=== PATIENT | female | born 1975 | race Caucasian/White ===

== ENCOUNTER 2017-11-07 15:26 | Emergency (ER) | payer OTHER ==
--- NOTE | 2017-11-07 16:43 | RAD REPORT ---
EXAM DESCRIPTION: RAD - Chest Single View - 11/07/2017 4:30 pm CLINICAL HISTORY: Chest pain COMPARISON: None. TECHNIQUE: AP portable chest image was obtained 1625 hours . FINDINGS: Lungs are clear. Heart and vasculature are normal. No measurable pleural effusion and no p neumothorax. No gross bony abnormality seen. No acute aortic findings suspected. IMPRESSION: No acute cardiopulmonary process.
[2017-11-07 16:48] LABS: Absolute Lymphocytes (CBC) 1.9 K/uL (0.7-4.9); Absolute Monocytes 0.7 K/uL (0.1-1.3); Absolute Neutrophil 5.3 K/uL (1.8-8.0); Basophils % 0.3 % (0-1.3); Eosinophils % 2.2 % (0-4.4); Hematocrit 39.8 % (36.0-45.0); Lymphocytes % 23.6 % (15.3-44.8); MCH 27.2 pg (27.0-35.0); MCV 81.5 fL (80-100); MPV 8.6 fL (7.6-11.3); RBC Red Blood Cell Count 4.89 M/uL (3.86-4.86)
[2017-11-07 16:58] LABS: Bicarbonate 27 mEq/L (21-31); Glucose Level 114 mg/dL (65-120); Potassium 4.1 mEq/L (3.6-5.0); Sodium Level 134 mEq/L (135-145)
[2017-11-07 17:04] LABS: ALT/SGPT 15 IU/L (10-60); AST/SGOT 17 IU/L (10-42); Albumin 3.8 g/dL (3.2-5.5); Alkaline Phosphatase 73 IU/L (42-121); BUN Blood Urea Nitrogen 12 mg/dL (6-20); Bilirubin Direct 0.1 mg/dL (0-0.2); Bilirubin Total < 0.2 mg/dL (0.3-1.2); Glomerular Filtration Rate 83 mL/min (=/>90); Magnesium 1.9 mg/dL (1.8-2.5)
[2017-11-07 17:08] LABS: Protime INR 0.88
--- NOTE | 2017-11-07 17:54 | RAD REPORT ---
EXAM DESCRIPTION: CT - Chest For Pe Angio - 11/07/2017 5:45 pm CLINICAL HISTORY: Chest pain. COMPARISON: None. TECHNIQUE: CT angiogram of the pulmonary arteries was performed with MIP. All CT scans are performed using dose optimization technique as appropriate and may include automated exposure control or mA/KV adjustment according to patient size. FINDINGS: No evidence of pulmonary thromboembolism. No acute aortic finding demonstrated. The lungs are clear. No significant pericardial or pleural fluid. No concerning bony finding. Postsurgical changes are seen about the stomach. IMPRESSION: No evidence of pulmonary thromboembolism. No acute lung findings.
[2017-11-07 18:13] LABS: Urine Blood NEGATIVE (NEG); Urine Glucose NEGATIVE (NEG); Urine Protein NEGATIVE (NEG); Urine Specific Gravity 1.025 (1.005-1.030); Urine pH 5.5 (5.0-7.0)
--- NOTE | 2017-11-07 19:29 | ER ---
Nurse's Notes [facility] Name: Bianka Granado Age: 41 yrs Sex: Female : 1975 Arrival Date: 11/07/2017 Time: 15:31 Bed 25 Private MD: Diagnosis: Chest pain, unspecified Presentation: 11/07 15:33 Presenting complaint: Patient states: I have been having chest pain on and off for the la1 last couple months that I attributed to anxiety but I had a couple EKGs done and they were abnormal. Transition of care: patient was not received from another setting of care. Onset of symptoms was November 07, 2017. Care prior to arrival: None. 15:33 Method Of Arrival: Ambulatory la1 15:33 Acuity: CANDI 3 la1 Historical: - Allergies: 15:34 Cipro; la1 - PMHx: 15:34 None; la1 - Immunization history:: Adult Immunizations up to date. - Social history:: Smoking status: Patient uses tobacco products, smokes one-half pack cigarettes per day. Screenin:05 Abuse screen: Denies threats or abuse. Denies injuries from another. Nutritional aj screening: No deficits noted. Tuberculosis screening: No symptoms or risk factors identified. Fall Risk None identified. Assessment: 16:05 Reassessment: Patient is sitting up in bed with at bedside. Patient is eating aj goldfish crackers, in NAD. General: Appears in no apparent distress. comfortable, Behavior is calm, cooperative, appropriate for age. Pain: Denies pain. Neuro: Level of Consciousness is awake, alert, obeys commands, Oriented to person, place, time, situation, Appropriate for age. Cardiovascular: Reports chest pain, since that occurred last night and has since subsided. Respiratory: Airway is patent Respiratory effort is even, unlabored, Respiratory pattern is regular, symmetrical. GI: No signs and/or symptoms were reported involving the gastrointestinal system. Abdomen is non-distended, obese. Derm: Skin is intact, is healthy with good turgor, Skin is pink, warm \T\ dry. normal. Vital Signs: 15:34 BP 138 / 88; Pulse 83; Resp 16; Temp 98.4(TE); Pulse Ox 100% on R/A; Weight 109.77 kg; la1 Height 5 ft. 6 in. (167.64 cm); 17:16 BP 130 / 77; Pulse 68; Resp 16; Pulse Ox 98% on R/A; aj 17:56 BP 127 / 78; Pulse 78; Resp 16; Pulse Ox 99% on R/A; aj 19:08 BP 111 / 76; Pulse 69; Resp 19; Pulse Ox 99% on R/A; aj 15:34 Body Mass Index 39.06 (109.77 kg, 167.64 cm) la1 ED Course: 15:31 Patient arrived in ED. mr 15:34 Triage completed. la1 15:35 Arm band placed on left wrist. la1 15:38 Tj Berman PA is PHCP. jr8 15:38 Ry Ruiz MD is Attending Physician. jr8 15:40 Mckenna Stock RN is Primary Nurse. aj 16:05 Patient has correct armband on for positive identification. Bed in low position. Warm aj blanket given. 16:28 X-ray completed. Portable x-ray completed in exam room. Patient tolerated procedure kc2 well. 16:29 XRAY Chest (1 view) In Process Unspecified. EDMS 16:30 Inserted saline lock: 20 gauge in left antecubital area, using aseptic technique. Blood aj collected. 17:00 EKG done, by ED staff, reviewed by Tj VYAS. 3 17:16 satellite project site monitor on. Pulse ox on. NIBP on. aj 17:[address] 17:[address] CT Chest For PE Angio In Process Unspecified. EDMS 19:42 No provider procedures requiring assistance completed. Patient did not have IV access aj during this emergency room visit. Administered Medications: No medications were administered Outcome: 19:29 Discharge ordered by . ziyad 19:42 Discharged to home ambulatory, with family. aj 19:42 Condition: good 19:42 Discharge instructions given to patient, Instructed on discharge instructions, follow up and referral plans. Demonstrated understanding of 19:43 Patient left the ED. aj Signatures: Dispatcher [employer] EDMS Mckenna Stock, RN Peri Cordoba mr Tj Berman PA PA jr8 Mckenna nelson, weed burner EKG Tat1 Greg Caba RN RN la1 Stacie Miranda Kelsie 2 Jennifer Matthews 3 Corrections: (The following items were deleted from the chart) 19:11 17:00 EKG done, by technology architect. reviewed by Tj VYAS at1 dh3
--- NOTE | 2017-11-07 19:30 | EDPHYS ---
Physician Documentation [facility] Name: Bianka Granado Age: 41 yrs Sex: Female : 1975 Arrival Date: 11/07/2017 Time: 15:31 Bed 25 Private MD: ED Physician Ry Ruiz HPI: 11/07 16:25 This 41 yrs old Female presents to ER via Ambulatory with complaints of chest jr8 pain . 16:25 The patient or guardian reports chest pain that is located primarily in the anterior jr8 chest wall, left. Onset: suddenly. The pain does not radiate. Associated signs and symptoms: Pertinent positives: diaphoresis. The chest pain is described as a heaviness, a pressure, squeezing. Duration: The patient or guardian reports multiple episodes, the episodes last approximately 10 minute(s). Modifying factors: The symptoms are alleviated by nothing. the symptoms are aggravated by nothing. Severity of pain: At its worst the pain was moderate in the emergency department the pain is unchanged. The patient has not experienced similar symptoms in the past. The patient has been recently seen by a physician:. Patient stated that for the past three months has had episodes of squeezing chest pressure that can last up to 10 min. Had sudden sharp pain while at rest last night. Went to PCP and had ekg done that showed abnormal appearance and was sent to ED. Currently being worked up for possible breast cancer as well . Historical: - Allergies: 15:34 Cipro; la1 - PMHx: 15:34 None; la1 - Immunization history:: Adult Immunizations up to date. - Social history:: Smoking status: Patient uses tobacco products, smokes one-half pack cigarettes per day. ROS: 16:25 Eyes: Negative for injury, pain, redness, and discharge, ENT: Negative for injury, jr8 pain, and discharge, Neck: Negative for injury, pain, and swelling, Respiratory: Negative for shortness of breath, cough, wheezing, and pleuritic chest pain, Abdomen/GI: Negative for abdominal pain, nausea, vomiting, diarrhea, and constipation, Back: Negative for injury and pain, MS/Extremity: Negative for injury and deformity, Skin: Negative for injury, rash, and discoloration, Neuro: Negative for headache, weakness, numbness, tingling, and seizure. 16:25 Cardiovascular: Positive for chest pain, Negative for edema, orthopnea, palpitations, paroxysmal nocturnal dyspnea. Exam: 16:25 Eyes: Pupils equal round and reactive to light, extra-ocular motions intact. Lids and jr8 lashes normal. Conjunctiva and sclera are non-icteric and not injected. Cornea within normal limits. Periorbital areas with no swelling, redness, or edema. ENT: Nares patent. No nasal discharge, no septal abnormalities noted. Tympanic membranes are normal and external auditory canals are clear. Oropharynx with no redness, swelling, or masses, exudates, or evidence of obstruction, uvula midline. Mucous membranes moist. Neck: Trachea midline, no thyromegaly or masses palpated, and no cervical lymphadenopathy. Supple, full range of motion without nuchal rigidity, or vertebral point tenderness. No Meningismus. Cardiovascular: Regular rate and rhythm with a normal S1 and S2. No gallops, murmurs, or rubs. Normal PMI, no JVD. No pulse deficits. Respiratory: Lungs have equal breath sounds bilaterally, clear to auscultation and percussion. No rales, rhonchi or wheezes noted. No increased work of breathing, no retractions or nasal flaring. Abdomen/GI: Soft, non-tender, with normal bowel sounds. No distension or tympany. No guarding or rebound. No evidence of tenderness throughout. Back: No spinal tenderness. No costovertebral tenderness. Full range of motion. Skin: Warm, dry with normal turgor. Normal color with no rashes, no lesions, and no evidence of cellulitis. MS/ Extremity: Pulses equal, no cyanosis. Neurovascular intact. Full, normal range of motion. Neuro: Awake and alert, GCS 15, oriented to person, place, time, and situation. Cranial nerves II-XII grossly intact. Motor strength 5/5 in all extremities. Sensory grossly intact. Cerebellar exam normal. Normal gait. Vital Signs: 15:34 BP 138 / 88; Pulse 83; Resp 16; Temp 98.4(TE); Pulse Ox 100% on R/A; Weight 109.77 kg; la1 Height 5 ft. 6 in. (167.64 cm); 17:16 BP 130 / 77; Pulse 68; Resp 16; Pulse Ox 98% on R/A; aj 17:56 BP 127 / 78; Pulse 78; Resp 16; Pulse Ox 99% on R/A; aj 19:08 BP 111 / 76; Pulse 69; Resp 19; Pulse Ox 99% on R/A; aj 15:34 Body Mass Index 39.06 (109.77 kg, 167.64 cm) la1 MDM: 15:38 Patient medically screened. jr8 19:28 The patient was given aspirin in the Emergency Department. Data reviewed: vital signs, [facility] nurses notes, lab test result(s), EKG, radiologic studies, CT scan, plain films, and as a result, I will discharge patient. Data interpreted: Pulse oximetry: on room air is 99 %. Interpretation: normal. Counseling: I had a detailed discussion with the patient and/or guardian regarding: the historical points, exam findings, and any diagnostic results supporting the discharge/admit diagnosis, lab results, radiology results, the need for outpatient follow up, a family practitioner, to return to the emergency department if symptoms worsen or persist or if there are any questions or concerns that arise at home. 11/07 16:21 Order name: Basic Metabolic Panel; Complete Time: 17:08 11/07 16:21 Order name: BNP; Complete Time: 17:08 11/07 16:21 Order name: CBC with Diff; Complete Time: 17:02 11/07 16:21 Order name: LFT's; Complete Time: 17:08 11/07 16:21 Order name: Magnesium; Complete Time: 17:08 11/07 16:21 Order name: PT-INR; Complete Time: 17:29 11/07 16:21 Order name: Ptt, Activated; Complete Time: 17:29 11/07 16:21 Order name: Troponin (emerg Dept Use Only); Complete Time: 17:08 11/07 16:21 Order name: XRAY Chest (1 view); Complete Time: 16:51 11/07 16:21 Order name: DD; Complete Time: 17:29 11/07 17:30 Order name: CT Chest For PE Angio; Complete Time: 17:57 11/07 17:36 Order name: Urine Dipstick--Ancillary (enter results); Complete Time: 18:19 mw2 11/07 17:36 Order name: Urine --Ancillary (enter results); Complete Time: 18:19 2 11/07 18:20 Order name: Troponin (emerg Dept Use Only); Complete Time: 19:28 8 11/07 16:21 Order name: EKG; Complete Time: 16:21 8 11/07 16:21 Order name: Cardiac monitoring; Complete Time: 17:19 8 11/07 16:21 Order name: EKG - Nurse/Tech; Complete Time: 17:19 8 11/07 16:21 Order name: IV Saline Lock; Complete Time: 17:19 11/07 16:21 Order name: Labs collected and sent; Complete Time: 17:19 11/07 16:21 Order name: O2 Per Protocol; Complete Time: 17:19 11/07 16:21 Order name: O2 Sat Monitoring; Complete Time: 17:19 11/07 16:21 Order name: Urine Dipstick-Ancillary (obtain specimen); Complete Time: 17:19 8 11/07 18:20 Order name: EKG - Nurse/Tech; Complete Time: 19:07 [facility] 11/07 18:20 Order name: EKG; Complete Time: 18:20 Administered Medications: No medications were administered Disposition: 11/07/17 19:29 Discharged to Home. Impression: Chest pain, unspecified. - Condition is Stable. - Discharge Instructions: Nonspecific Chest Pain, Aspirin and Your Heart. - Medication Reconciliation Form, Thank You Letter, Antibiotic Education, Prescription Opioid Use form. - Follow up: Private Physician; When: 2 - 3 days; Reason: Recheck today's complaints, Continuance of care, Re-evaluation by your physician. - Problem is new. - Symptoms have improved. Addendum: 11/10/2017 07:51 Co-signature as Attending Physician, Ry Ruiz MD I agree with the assessment and w a plan of care. Signatures: Dispatcher [employer] Mckenna Dior, RN Tj Soto PA PA jr8 Greg Caba RN RN la1 Ry Ruiz MD MD ne
--- NOTE | 2017-11-09 22:39 | EKG ---
Test Date: 2017-11-07 Test Time: 19:02:50 Radio Interference Investigator: KAYLENE MEASUREMENT RESULTS: Intervals: Rate: 67 MD: 162 QRSD: 78 QT: 390 QTc: 412 [place]: P: 67 MD: 162 QRS: 53 T: 22 INTERPRETIVE STATEMENTS: Normal sinus rhythm Normal ECG Compared to ECG 11/07/2017 15:41:35 No significant changes Electronically Signed On 11-09-17 22:39:24 CDT by Nathen Eagle
--- NOTE | 2017-11-09 22:42 | EKG ---
Test Date: 2017-11-07 Test Time: 15:41:35 Wind Turbine Design Engineer: AMANDA MEASUREMENT RESULTS: Intervals: Rate: 72 CT: 142 QRSD: 78 QT: 380 QTc: 416 [place]: P: 53 CT: 142 QRS: 43 T: 1 INTERPRETIVE STATEMENTS: Normal sinus rhythm Normal ECG No previous ECG available for comparison Electronically Signed On 11-09-17 22:42:12 CDT by Nathen Eagle
== END 2017-11-07 19:43 | disposition home or self-care (01) ==
LOC: ER 15:26
DX: R07.9 Chest pain, unspecified (principal); F17.210 Nicotine dependence, cigarettes, uncomplicated; Z88.1 Allergy status to other antibiotic agents
CPT/HCPCS: 36415; 71045; 71275; 80048; 80076; 81003; 81025; 83735; 83880; 84484; 85025; 85379; 85610; 85730; 93005; 99285; Q9967

== ENCOUNTER 2017-12-26 00:07 | Observation (INO) | payer OTHER ==
[2017-12-26 01:13] LABS: Absolute Lymphocytes (CBC) 2.3 K/uL (0.7-4.9); Absolute Monocytes 0.7 K/uL (0.1-1.3); Absolute Neutrophil 4.2 K/uL (1.8-8.0); Basophils % 0.4 % (0-1.3); Eosinophils % 2.1 % (0-4.4); Hematocrit 39.8 % (36.0-45.0); Lymphocytes % 31.6 % (15.3-44.8); MCH 26.5 pg (27.0-35.0); MCV 79.7 fL (80-100); MPV 8.6 fL (7.6-11.3); Monocytes % 9.6 % (3.3-12.3); RBC Red Blood Cell Count 4.99 M/uL (3.86-4.86)
[2017-12-26 01:17] LABS: Protime INR 0.9
[2017-12-26] MEDS ORDERED: ASPIRIN 81 MG CHEWABLE TABLET ONE (01:20)
[2017-12-26] MEDS ORDERED: NITROGLYCERIN 0.4 MG/TAB SL ONE (01:25)
[2017-12-26 01:44] LABS: Bicarbonate 24 mEq/L (21-31); Glucose Level 104 mg/dL (65-120); Potassium 3.8 mEq/L (3.6-5.0); Sodium Level 137 mEq/L (135-145)
[2017-12-26 01:50] LABS: ALT/SGPT 16 IU/L (10-60); AST/SGOT 18 IU/L (10-42); Albumin 3.8 g/dL (3.2-5.5); Alkaline Phosphatase 72 IU/L (42-121); BUN Blood Urea Nitrogen 15 mg/dL (6-20); Bilirubin Direct < 0.1 mg/dL (0-0.2); Bilirubin Total 0.6 mg/dL (0.3-1.2); Creatine Phosphokinase 178 IU/L (22-269); Protein, Total 6.2 g/dL (6.0-8.3)
[2017-12-26 01:50] LABS: Urine Blood NEGATIVE (NEG); Urine Glucose NEGATIVE (NEG); Urine Protein NEGATIVE (NEG); Urine Specific Gravity 1.015 (1.005-1.030); Urine pH 6.5 (5.0-7.0)
[2017-12-26 01:51] LABS: CKMB Creatine Kinase MB 1.1 ng/ml (0.3-4.0)
[2017-12-26] MEDS ORDERED: ONDANSETRON 4 MG/2 ML VIAL ONE (03:05)
--- NOTE | 2017-12-26 03:13 | ER ---
Nurse's Notes [facility] Name: Bianka Granado Age: 42 yrs Sex: Female : 1975 Arrival Date: 12/26/2017 Time: 00:08 Bed 15 Private MD: Diagnosis: Angina pectoris Presentation: 12/26 00:06 Presenting complaint: EMS states: Reports pt had a sudden onset of palpitations. and ea chest pain in the center of her chest that does not radiate, pt reported she was just sitting down watching television when this started. Transition of care: patient was not received from another setting of care. Onset of symptoms was December 26, 2017. Risk Assessment: Do you want to hurt yourself or someone else? Patient reports no desire to harm self or others. Initial Sepsis Screen: Does the patient meet any 2 criteria? No. Patient's initial sepsis screen is negative. Does the patient have a suspected source of infection? No. Patient's initial sepsis screen is negative. Care prior to arrival: EMS reported EKG Normal sinus rhythm. 00:06 Method Of Arrival: EMS: [facility] ea 00:06 Acuity: CANDI 3 ea Triage Assessment: 00:06 General: Appears in no apparent distress. Behavior is calm, cooperative, appropriate ea for age. Pain: Complains of pain in mid-sternal area Pain does not radiate. Pain currently is 5 out of 10 on a pain scale. Quality of pain is described as aching, Pain began 1 hour ago. EENT: No signs and/or symptoms were reported regarding the EENT system. Neuro: Level of Consciousness is awake, alert, obeys commands, Oriented to person, place, time, situation. Cardiovascular: Heart tones S1 S2 present Patient's skin is warm and dry. Respiratory: Airway is patent Respiratory effort is even, unlabored, Respiratory pattern is regular, symmetrical, Breath sounds are clear bilaterally. GI: No signs and/or symptoms were reported involving the gastrointestinal system. : No signs and/or symptoms were reported regarding the genitourinary system. Derm: Skin is pink, warm \T\ dry. Musculoskeletal: No signs and/or symptoms reported regarding the musculoskeletal system. WILD LIFE PHOTOGRAPHER: 00:06 LMP 12/19/2017 ea Historical: - Allergies: 00:32 Cipro; ea - Home Meds: 00:32 Lexapro Oral [Active]; ea - PMHx: 00:32 Anxiety; ea - PSHx: 00:32 Tubal ligation; gastric sleeve; Cholecystectomy; ea - Immunization history:: Adult Immunizations up to date. - Social history:: Smoking status: Patient uses tobacco products, smokes 1/3 q 3 days. - Ebola Screening: : No symptoms or risks identified at this time. Screenin:29 Abuse screen: Denies threats or abuse. Nutritional screening: No deficits noted. ea Tuberculosis screening: No symptoms or risk factors identified. Fall Risk None identified. Assessment: 01:41 Reassessment: Patient and/or family updated on plan of care and expected duration. Pain ea level reassessed. Patient is alert, oriented x 3, equal unlabored respirations, skin warm/dry/pink. Pain: Complains of pain in mid-sternal area Pain currently is 4 out of 10 on a pain scale. 02:56 Reassessment: Patient and/or family updated on plan of care and expected duration. Pain ea level reassessed. Patient is alert, oriented x 3, equal unlabored respirations, skin warm/dry/pink. Reassessment: Patient states feeling better. Patient states symptoms have improved. Pain: Denies pain. 03:15 Reassessment: Patient and/or family updated on plan of care and expected duration. Pain ea level reassessed. Patient is alert, oriented x 3, equal unlabored respirations, skin warm/dry/pink. Pt c/o nausea, provider notified, medication order obtained, medication administered, pt tolerated well. . Vital Signs: 00:06 BP 126 / 86; Pulse 62; Resp 18; Temp 98.9(O); Pulse Ox 98% on R/A; Weight 109.77 kg; ea Height 5 ft. 6 in. (167.64 cm); Pain 5/10; 01:22 BP 108 / 66; Pulse 72; Resp 17; Pulse Ox 97% on R/A; mw2 02:56 BP 123 / 81; Pulse 68; Resp 18; Pulse Ox 98% on R/A; Pain 0/10; ea 04:53 BP 109 / 86; Pulse 63; Resp 19; Pulse Ox 98% on R/A; mw2 00:06 Body Mass Index 39.06 (109.77 kg, 167.64 cm) ea ED Course: 00:06 Patient has correct armband on for positive identification. Bed in low position. Call ea light in reach. Side rails up X2. awake overnight monitor on. Pulse ox on. NIBP on. 00:08 Patient arrived in ED. am2 00:14 Chitra Álvarez, RN is Primary Nurse. ea 00:18 Jeffrey Juárez MD is Attending Physician. tw4 00:29 Triage completed. ea 00:31 X-ray completed. Portable x-ray completed in exam room. Patient tolerated procedure kw well. 00:32 XRAY Chest (1 view) In Process Unspecified. EDMS 00:36 Arm band placed on right wrist. EKG completed in triage. Results shown to MD. ea 00:37 Patient maintains SpO2 saturation greater than 95% on room air. ea 03:12 Marcello Martinez MD is Hospitalizing Provider. tw4 05:22 No provider procedures requiring assistance completed. Patient admitted, IV remains in ea place. Administered Medications: 01:23 Drug: Aspirin Chewable Tablet 162 mg Route: PO; ea 02:57 Follow up: Response: No adverse reaction; Pain is decreased ea 01:31 Drug: Nitroglycerin 0.4 mg Route: Sublingual; ea 02:57 Follow up: Response: No adverse reaction; Pain is decreased ea 03:18 Drug: Zofran 4 mg Route: IVP; Site: right antecubital; ea 04:00 Follow up: Response: No adverse reaction; Nausea is decreased ea Outcome: 03:12 Decision to Hospitalize by Provider. tw4 04:00 Admitted to Med/surg accompanied by tech, room 228, with chart, Report called to Charis garcia RN 04:00 Condition: stable 04:00 Instructed on the need for admit. 05:30 Patient left the ED. ea Signatures: Dispatcher [employer] EDCO [place] Nena Harvey Amanda am2 Chitra Álvarez RN RN Jeffrey Lopez MD MD tw4 Sravanthi Thao 2
--- NOTE | 2017-12-26 03:13 | EDPHYS ---
Physician Documentation [facility] Name: Bianka Granado Age: 42 yrs Sex: Female : 1975 Arrival Date: 12/26/2017 Time: 00:08 Bed 15 Private MD: ED Physician Jeffrey Juárez HPI: 12/26 01:30 This 42 yrs old Female presents to ER via EMS with complaints of Chest Pain, tw4 Anxiety. 01:30 The patient or guardian reports chest pain that is located primarily in the anterior tw4 chest wall, left. Onset: just prior to arrival, today. The pain radiates to the left arm, left neck. Associated signs and symptoms: The patient has no apparent associated signs or symptoms. The chest pain is described as a pressure. Duration: The patient or guardian reports a single episode. Modifying factors: The symptoms are alleviated by nothing. the symptoms are aggravated by. Severity of pain: At its worst the pain was moderate in the emergency department the pain is unchanged. The patient has not experienced similar symptoms in the past. 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 - Social history:: Smoking status: Patient uses tobacco products, smokes 1/3 q 3 days. - Ebola Screening: : No symptoms or risks identified at this time. ROS: 01:30 Constitutional: Negative for fever, chills, and weight loss, Respiratory: Negative for tw4 shortness of breath, cough, wheezing, and pleuritic chest pain, Abdomen/GI: Negative for abdominal pain, nausea, vomiting, diarrhea, and constipation, Back: Negative for injury and pain, MS/Extremity: Negative for injury and deformity, Skin: Negative for injury, rash, and discoloration. 01:30 Cardiovascular: Positive for chest pain, Negative for edema, orthopnea, palpitations. Exam: 01:30 Constitutional: This is a well developed, well nourished patient who is awake, alert, tw4 and in no acute distress. Head/Face: Normocephalic, atraumatic. Chest/axilla: Normal chest wall appearance and motion. Nontender with no deformity. No lesions are appreciated. Cardiovascular: Regular rate and rhythm with a normal S1 and S2. No gallops, murmurs, or rubs. Normal PMI, no JVD. No pulse deficits. Respiratory: Lungs have equal breath sounds bilaterally, clear to auscultation and percussion. No rales, rhonchi or wheezes noted. No increased work of breathing, no retractions or nasal flaring. Abdomen/GI: Soft, non-tender, with normal bowel sounds. No distension or tympany. No guarding or rebound. No evidence of tenderness throughout. Back: No spinal tenderness. No costovertebral tenderness. Full range of motion. Skin: Warm, dry with normal turgor. Normal color with no rashes, no lesions, and no evidence of cellulitis. MS/ Extremity: Pulses equal, no cyanosis. Neurovascular intact. Full, normal range of motion. Vital Signs: 00:06 BP 126 / 86; Pulse 62; Resp 18; Temp 98.9(O); Pulse Ox 98% on R/A; Weight 109.77 kg; ea Height 5 ft. 6 in. (167.64 cm); Pain 5/10; 01:22 BP 108 / 66; Pulse 72; Resp 17; Pulse Ox 97% on R/A; mw2 02:56 BP 123 / 81; Pulse 68; Resp 18; Pulse Ox 98% on R/A; Pain 0/10; ea 04:53 BP 109 / 86; Pulse 63; Resp 19; Pulse Ox 98% on R/A; mw2 00:06 Body Mass Index 39.06 (109.77 kg, 167.64 cm) ea MDM: 00:20 Patient medically screened. tw4 03:12 Differential diagnosis: acute myocardial infarction, acute pericarditis, anxiety, tw4 costochondritis, esophagitis, pulmonary embolus, thoracic aortic disection. HEART Score: History: Moderately Suspicious (1), ECG: Normal (0), Age: < or = 45 years (0), Risk Factors: 1 or 2 risk factors (1), [+ Family HX] Troponin: < or = 1 x Normal Limit (0), Total Score =. The patient was given aspirin in the Emergency Department. Data reviewed: vital signs, nurses notes. Data interpreted: controller mechanic: rhythm is normal sinus rhythm, Pulse oximetry: Interpretation: normal. Test interpretation: by ED physician or midlevel provider: ECG, plain radiologic studies. Counseling: I had a detailed discussion with the patient and/or guardian regarding: the historical points, exam findings, and any diagnostic results supporting the discharge/admit diagnosis, lab results, radiology results. Medication response: Nitro x 1 relieved pain. Response to treatment: the patient's symptoms have resolved after treatment, and as a result, I will admit patient. Physician consultation: Marcello Martinez MD was called at 03:03, was contacted at 03:03, regarding admission, patient's condition, and will see patient in inpatient room. Admission orders: after a detailed discussion of the patient's condition and case, the admit orders are written by me. 12/26 00:20 Order name: Basic Metabolic Panel; Complete Time: 03:04 12/26 00:20 Order name: BNP; Complete Time: 03:04 12/26 00:20 Order name: CBC with Diff; Complete Time: 03:04 12/26 00:20 Order name: Ckmb; Complete Time: 03:04 12/26 00:20 Order name: CPK; Complete Time: 03:04 12/26 00:20 Order name: LFT's; Complete Time: 03:04 12/26 00:20 Order name: Magnesium; Complete Time: 03:04 12/26 00:20 Order name: PT-INR; Complete Time: 03:04 12/26 00:20 Order name: Ptt, Activated; Complete Time: 03:04 12/26 00:20 Order name: Troponin (emerg Dept Use Only); Complete Time: 03:04 12/26 00:20 Order name: XRAY Chest (1 view) 12/26 01:19 Order name: Urine Dipstick--Ancillary (enter results); Complete Time: 03:04 12/26 01:19 Order name: Urine --Ancillary (enter results); Complete Time: 03:04 12/26 00:20 Order name: Urine Test (obtain specimen); Complete Time: 01:25 12/26 00:20 Order name: EKG; Complete Time: 00:20 12/26 00:20 Order name: Cardiac monitoring; Complete Time: 00:51 12/26 00:20 Order name: EKG - Nurse/Tech; Complete Time: 00:42 12/26 00:20 Order name: IV Saline Lock; Complete Time: 00:51 12/26 00:20 Order name: Labs collected and sent; Complete Time: 00:52 12/26 00:20 Order name: O2 Per Protocol; Complete Time: 00:51 12/26 00:20 Order name: O2 Sat Monitoring; Complete Time: 00:52 12/26 00:20 Order name: Urine Dipstick-Ancillary (obtain specimen); Complete Time: EC:30 Rate is 62 beats/min. Rhythm is regular. QRS [place] is Normal. VA interval is normal. QRS tw4 interval is normal. QT interval is normal. No Q waves. No ST changes noted. Clinical impression: Normal ECG and No evidence of ischemia. Interpreted by me. Reviewed by me. Administered Medications: 01:23 Drug: Aspirin Chewable Tablet 162 mg Route: PO; ea 02:57 Follow up: Response: No adverse reaction; Pain is decreased ea 01:31 Drug: Nitroglycerin 0.4 mg Route: Sublingual; ea 02:57 Follow up: Response: No adverse reaction; Pain is decreased ea 03:18 Drug: Zofran 4 mg Route: IVP; Site: right antecubital; ea 04:00 Follow up: Response: No adverse reaction; Nausea is decreased ea Disposition: 12/26/17 03:12 Hospitalization ordered by Marcello Martinez for Observation. Preliminary diagnosis is Angina pectoris. - Bed requested for Telemetry/MedSurg (observation). - Status is Observation. ea - Condition is Stable. - Problem is new. - Symptoms have improved. UTI on Admission? No Signatures: Dispatcher [employer] [facility] Griselda Almanzar RN RN mw Antunez, Elena, RN RN ea Wadley, Terrence, MD MD tw4 Corrections: (The following items were deleted from the chart) 03:55 03:12 Hospitalization Ordered by Marcello Martinez MD for Observation. Preliminary diagnosis is Angina pectoris. Bed requested for Telemetry/MedSurg (observation). Status is Observation. Condition is Stable. Problem is new. Symptoms have improved. UTI on Admission? No. tw4 05:30 03:55 12/26/2017 03:12 Hospitalization Ordered by Marcello Martinez MD for Observation. ea Preliminary diagnosis is Angina pectoris. Bed requested for Telemetry/MedSurg (observation). Status is Observation. Condition is Stable. Problem is new. Symptoms have improved. UTI on Admission? No. mw
[2017-12-26] MEDS ORDERED: ACETAMINOPHEN 500 MG TAB PO PRN (04:23)
--- NOTE | 2017-12-26 04:34 | P.HP ---
Certification for Inpatient Patient admitted to: Observation With expected LOS: <2 Midnights Practitioner: I am a practitioner with admitting privileges, knowledge of patient current condition, hospital course, and medical plan of care. Services: Services provided to patient in accordance with Admission requirements found in Title 42 Section 412.3 of the Code of Federal Regulations Patient History Date of Service: 12/26/17 Reason for admission: chest pain History of Present Illness: Ms Granado is a 42 years old woman with history of HTN and anxiety disorder, who came to ED complaining of chest pain. The pain started last night while she was watching TV. She describe the pain as a tightness pressure in substernal area, associated with palpitations and SOB. The pain radiated to her left arm, it was associated with nausea but not vomiting. In ED she had a nitro pill, and states that her pain decreased and remain more than a sore. EKG shows SR without ST abnormalities, T wave inversion in only 1 lead ([place]), initial troponin I is negative. In October she had similar episode, she had a negative work up in ED and was sent home. She is worry since has family history of heart disease. Allergies ciprofloxacin [From Cipro] Allergy (Unverified 04/13/15 09:09) Unknown ciprofloxacin HCl [From Cipro] Allergy (Unverified 04/13/15 09:09) Unknown Penicillins Allergy (Unverified 04/13/15 09:09) Unknown - Past Medical/Surgical History -: anxiety -: HTN - Family History Sister -: Heart disease Father -: Heart disease - Social History Smoking Status: Current every day smoker Counseled patient to stop smoking for: less than 10 minutes Alcohol use: No CD- Drugs: No Place of Residence: Home Review of Systems 10-point ROS is otherwise unremarkable Physical Examination - Physical Exam General: Alert, In no apparent distress HEENT: Atraumatic, PERRLA, Mucous membr. moist/pink, EOMI, Sclerae nonicteric Neck: Supple, 2+ carotid pulse no bruit, No LAD, Without JVD or thyroid abnormality Respiratory: Clear to auscultation bilaterally, Normal air movement Cardiovascular: Regular rate/rhythm, Normal S1 S2 Gastrointestinal: Normal bowel sounds, No tenderness Musculoskeletal: No tenderness Integumentary: No rashes Neurological: Normal gait, Normal speech, Normal strength at 5/5 x4 extr, Normal tone, Normal affect Lymphatics: No axilla or inguinal lymphadenopathy - Studies Laboratory Data (last 24 hrs) 12/26/17 00:43: PT 10.6, INR 0.90, APTT 25.3 12/26/17 00:43: WBC 7.4, Hgb 13.2, Hct 39.8, Plt Count 262 12/26/17 00:43: B-Natriuretic Peptide 14 12/26/17 00:43: Sodium 137, Potassium 3.8, BUN 15, Creatinine 0.74, Glucose 104 , Magnesium 2.0, Total Bilirubin 0.6, AST 18, ALT 16, Alkaline Phosphatase 72 Assessment and Plan - Problems (Diagnosis) (1) Chest pain Current Visit: Yes Status: Acute Qualifiers: Chest pain type: unspecified Qualified Code(s): R07.9 - Chest pain, unspecified - Plan The patient will be admitted to the hospital under observation due to chest pain. Since this is her second visit to ED for the same condition. Differential diagnosis include panic attack. So far no signs of ACS. Will continue with serial cardiac enzymes, EKG, ECHO consult cardiology. - Advance Directives Does patient have a Living Will: No Does patient have a Durable POA for Healthcare: No - Code Status/Comfort Care Code Status Assessed: Yes Code Status: Full Code
--- NOTE | 2017-12-26 06:50 | EKG ---
Test Date: 2017-12-26 Test Time: 00:20:08 House Carpenter: IZA MEASUREMENT RESULTS: Intervals: Rate: 62 TX: 148 QRSD: 84 QT: 418 QTc: 424 [place]: P: 70 TX: 148 QRS: 47 T: 14 INTERPRETIVE STATEMENTS: Normal sinus rhythm Normal ECG Compared to ECG 11/07/2017 19:02:50 No significant changes Electronically Signed On 12-26-17 06:50:01 CDT by Nathen Eagle
--- NOTE | 2017-12-26 08:37 | RAD REPORT ---
EXAM DESCRIPTION: RAD - Chest Single View - 12/26/2017 12:32 am CLINICAL HISTORY: Chest pain, palpitations COMPARISON: November 07 TECHNIQUE: AP portable chest image was obtained 0027 hours . FINDINGS: Lungs are clear. Heart and vasculature are normal. No measurable pleural effusion and no p neumothorax. No gross bony abnormality seen. No acute aortic findings suspected. IMPRESSION: No acute cardiopulmonary process. No significant interval change.
[2017-12-26] MEDS ORDERED: ASPIRIN EC 81 MG TAB PO SCH (09:00)
[2017-12-26] MEDS ORDERED: ESCITALOPRAM 20 MG TAB PO SCH (09:00)
[2017-12-26] MEDS ORDERED: ENOXAPARIN 40 MG/0.4 ML SQ SCH (09:00)
--- NOTE | 2017-12-26 12:06 | CON ---
Identification: A 42-year-old woman. Additional Attending Physician: Dr. Marcello Connell Chief Complaint: Chest pain. History Of Present Illness: Ms. Granado had the sudden onset of pain that was in the left breast ar ea. It was associated with her heart racing. She did not take her pulse or her blood pressure, but came to the emergency room fairly quickly. She says that the pain was still present, much improved, but the pounding had resolved. When she arrived in the emergency room, her EKG was normal. Blood pr essure 126/86, pulse 62. Since being in the hospital, she has had normal EKGs, normal cardiac enzyme s, and no recurrence of the pain. No arrhythmia on telemetry. The patient has no previous history o f myocardial infarction, stroke, or vascular disease. She has a history of a gastric sleeve for obes ity. She takes Lexapro as her only home medicine. She does not have diabetes, hypertension, or dysl ipidemia. Social History: She smokes about 7 cigarettes per day. Physical Examination: General: She appears to be her stated age of 42. Alert, oriented, pleasant, not in distress. Vital Signs: 5 feet 6 inches, 257 pounds. Lungs: Clear. Heart: Normal. Abdomen: Soft. Extremities: Normal. No cyanosis, clubbing, or edema. Distal pulses normal. Diagnostic Data: EKG normal. Laboratory Data: Hemoglobin 13.2, creatinine 0.74. Troponins 0.03. B-natriuretic peptide 14. Tota l cholesterol 152, HDL 53, and LDL cholesterol 84. Impression: The patient is a low risk patient for having coronary heart disease, but I wonder if she has atrial fibrillation that caused her symptoms. It is possible she had that and it resolved by th e time she got here. We will do a stress test and echo. If those are normal, she could be discharge d, and I would recommend as an outpatient, she wear an event monitor to go for 28 days, see if we pic k up any arrhythmia that might explain her symptoms. Of course, smoking cessation is going to be nuria y important for her and if her stress test indicates possible ischemic heart disease, we will proceed to a cardiac cath and possible stenting. JEF/JONNIE Voice ID: [id number] Report ID: [id number]
--- NOTE | 2017-12-26 14:16 | TREADMILL ---
70% H.R.: 125 85% H.R.: 151 90% H.R.: 160 100% H.R.: 178 DX: CHEST PAIN Date of Study: 12/26/2017 Ht: 5 6 Wt: 257 lb 9.6 oz Consulting Physician: BOBBY MEDICATIONS: TYLENOL, LOVENOX, ASPIRIN, LEXAPRO HISTORY: 42 YEAR OLD FEMALE WITH CHEST PAIN. HISTORY: SMOKES ONE PACK PER DAY. PHYSICIAL EXAMINATION: RESTING B.P.: 114/77 RESTING H.R.: 66 RESTING EKG: NORMAL PROTOCOL: TUCKER ROUTINE EXERCISE TIME: 5:56 MAXIMUM HEART RATE: 151 % OF PREDICTED B.P. AT PEAK STRESS: 140/67 H.R. AT 1 MINUTE POST EXERCISE: 110 IMPRESSION: ROUTINE TUCKER STOPPED DUE TO FATIGUE AND TARGET HEART RATE. NO CHEST PAIN. NO VENTRICULAR TACHYCARDIA. NO SUPRAVENTRICULAR TACHYCARDIA. NO SIGNIFICANT ST CHANGE WITH STRESS. NORMAL STRESS TEST.
--- NOTE | 2017-12-26 14:16 | ECHO ---
HEIGHT: 5 ft 6 in WEIGHT: 257 lb 9.6 oz DATE OF STUDY: 12/26/[address]: Marcello Connell MD 2-DIMENSIONAL: YES M.MODE: YES DOPPLER: YES COLOR FLOW: YES TDS: PORTABLE: DEFINITY: BUBBLE STUDY: DIAGNOSIS: CHEST PAIN CARDIAC HISTORY: CATHERIZATION: NO SURGERY: NO PROSTHETIC VALVE: NO PACEMAKER: NO MEASUREMENTS (cm) DIASTOLIC (NORMALS) SYSTOLIC (NORMALS) IVSd 1.1 (0.6-1.2) LA Diam 3.6 (1.9-4.0) LVEF 62% LVIDd 3.7 (3.5-5.7) LVIDs 2.5 (2.0-3.5) %FS 33% LVPWd 1.3 (0.6-1.2) Ao Diam 2.8 (2.0-3.7) 2 DIMENSIONAL ASSESSMENT: RIGHT ATRIUM: NORMAL LEFT ATRIUM: NORMAL RIGHT VENTRICLE: NORMAL LEFT VENTRICLE: NORMAL TRICUSPID VALVE: NORMAL MITRAL VALVE: NORMAL PULMONIC VALVE: NORMAL AORTIC VALVE: NORMAL PERICARDIAL EFFUSION: NONE AORTIC ROOT: NORMAL LEFT VENTRICULAR WALL MOTION: NORMAL DOPPLER/COLOR FLOW: TRACE MITRAL REGURGITATION. COMMENTS: NORMAL TWO DIMENSIONAL ECHOCARDIOGRAM. TRACE MITRAL REGURGITATION. TECHNOLOGIST: DARREN DRAKE
--- NOTE | 2017-12-26 15:16 | P.DS ---
Admission Date: 12/26/17 Discharge Date: 12/26/17 Disposition: ROUTINE DISCHARGE Discharge Condition: GOOD Reason for Admission: chest pain Consultations: Cardiology Dr. Eagle Procedures: Exercise stress test negative - Problems (1) Morbid obesity with BMI of 40.0-44.9, adult Current Visit: Yes Status: Acute (2) Depression with anxiety Current Visit: Yes Status: Acute (3) Chest pain Onset Date: 12/26/17 Current Visit: Yes Status: Acute Qualifiers: Chest pain type: unspecified Qualified Code(s): R07.9 - Chest pain, unspecified Brief History of Present Illness: From H and P Ms Granado is a 42 years old woman with history of HTN and anxiety disorder, who came to ED complaining of chest pain. The pain started last night while she was watching TV. She describe the pain as a tightness pressure in substernal area, associated with palpitations and SOB. The pain radiated to her left arm, it was associated with nausea but not vomiting. In ED she had a nitro pill, and states that her pain decreased and remain more than a sore. EKG shows SR without ST abnormalities, T wave inversion in only 1 lead ([place]), initial troponin I is negative. In October she had similar episode, she had a negative work up in ED and was sent home. She is worry since has family history of heart disease. Hospital Course: Patient is a 42-year-old female with past medical history of depression and anxiety who comes into the hospital with palpitations. Patient was admitted to the hospital. Cardiac workup was initiated ACS was ruled out. Patient did not have any further episodes of palpitations. EKG did not show any abnormalities. Patient was placed on a cardiac telemetry which did not show any arrhythmias either. Patient was seen by cardiology Dr. Eagle and was taken for excess stress test due to her chest pain which had resolved upon being admitted. Patient echocardiogram showed normal ejection fraction and her stress test was negative. Patient's symptoms had resolved. Patient was cleared for discharge by Dr. Eagle is standpoint. Patient will need outpatient follow up for a Holter monitor testing. Explained to patient risk of stroke with occult atrial fibrillation. Patient voiced understanding. Patient will also need to address her diet and exercise regimen as she is morbidly obese and at risk for further development of the AFib. Vital Signs/Physical Exam: Temp Pulse Resp BP Pulse Ox 98.0 F 52 17 114/61 94 12/26/17 08:00 12/26/17 08:00 12/26/17 08:00 12/26/17 08:00 12/26/17 08:00 General: Alert, In no apparent distress, Oriented x3, Obese HEENT: Atraumatic, PERRLA, EOMI Neck: Supple, JVD not distended Respiratory: Clear to auscultation bilaterally, Normal air movement Cardiovascular: No edema, Normal pulses, Regular rate/rhythm, Normal S1 S2 Gastrointestinal: Normal bowel sounds, Soft and benign, Non-distended, No tenderness Musculoskeletal: No clubbing, No tenderness Integumentary: No rashes, No erythema Neurological: Normal speech, Normal strength at 5/5 x4 extr, Normal tone, Normal affect Laboratory Data at Discharge: WBC 7.4 K/uL (4.3-10.9) 12/26/17 00:43 Hgb 13.2 g/dL (12.0-15.0) 12/26/17 00:43 Hct 39.8 % (36.0-45.0) 12/26/17 00:43 Plt Count 262 K/uL (152-406) 12/26/17 00:43 PT 10.6 SECONDS (9.5-12.5) 12/26/17 00:43 INR 0.90 12/26/17 00:43 APTT 25.3 SECONDS (24.3-36.9) 12/26/17 00:43 Sodium 137 mEq/L (135-145) 12/26/17 00:43 Potassium 3.8 mEq/L (3.6-5.0) 12/26/17 00:43 BUN 15 mg/dL (6-20) 12/26/17 00:43 Creatinine 0.74 mg/dL (0.44-1.00) 12/26/17 00:43 Glucose 104 mg/dL (65-120) 12/26/17 00:43 Magnesium 2.0 mg/dL (1.8-2.5) 12/26/17 00:43 Total Bilirubin 0.6 mg/dL (0.3-1.2) 12/26/17 00:43 AST 18 IU/L (10-42) 12/26/17 00:43 ALT 16 IU/L (10-60) 12/26/17 00:43 Alkaline Phosphatase 72 IU/L (42-121) 12/26/17 00:43 Troponin I < 0.03 ng/mL (<0.03) 12/26/17 12:29 B-Natriuretic Peptide 14 pg/ml (<=100) 12/26/17 00:43 Triglycerides 74 mg/dL (35-160) 12/26/17 05:22 Cholesterol 152 mg/dL (<200) 12/26/17 05:22 HDL Cholesterol 53 mg/dL (29-89) 12/26/17 05:22 Cholesterol/HDL Ratio 2.87 12/26/17 05:22 Home Medications: Escitalopram [Lexapro*] 20 mg PO DAILY 12/26/17 Patient Discharge Instructions: f/up w PCP in 2-3 days. f/up w service tester Dr. Eagle in 2 weeks. Return to ER for worsening condition Diet: AHA Activity: Ad araseli
== END 2017-12-26 17:45 | disposition home or self-care (01) ==
LOC: ER 00:07 → ERHOLD 03:50 → 2ND 05:02
PROVIDERS: ADMIT Internal Medicine; ATTEND Family Medicine
DX: R07.9 Chest pain, unspecified (principal); I10 Essential (primary) hypertension; F41.8 Other specified anxiety disorders; E66.01 Morbid (severe) obesity due to excess calories; F17.200 Nicotine dependence, unspecified, uncomplicated
CPT/HCPCS: 36415; 71045; 80048; 80061; 80076; 81003; 81025; 82550; 82553; 83735; 83880; 84484; 85025; 85610; 85730; 93005; 93017; 93306; 96374; 99285; G0378; J1650; J2405

== ENCOUNTER 2019-03-09 13:26 | Emergency (ER) | payer OTHER ==
[2019-03-09 13:59] LABS: Absolute Lymphocytes (CBC) 1.7 K/uL (0.7-4.9); Basophils % 0.4 % (0-1.3); Hematocrit 39.4 % (36.0-45.0); Lymphocytes % 28.7 % (15.3-44.8); MPV 8.7 fL (7.6-11.3); RBC Red Blood Cell Count 4.82 M/uL (3.86-4.86)
--- NOTE | 2019-03-09 14:14 | RAD REPORT ---
EXAM DESCRIPTION: Rosina Single View03/09/2019 2:01 pm CLINICAL HISTORY: Chest pain COMPARISON: December 2017 FINDINGS: The lungs appear clear of acute infiltrate. The heart is normal size IMPRESSION: No acute abnormalities displayed
[2019-03-09 14:15] LABS: BUN Blood Urea Nitrogen 10 mg/dL (7-18); Bicarbonate 24 mmol/L (21-32); Glucose Level 85 mg/dL (74-106); NT PRO-BNP 66 pg/mL (<125); Sodium Level 140 mmol/L (136-145); Troponin (Emerg Dept Use Only) < 0.02 ng/mL (0.0-0.045)
--- NOTE | 2019-03-09 15:58 | EKG ---
Test Date: 2019-03-09 Test Time: 15:31:37 Cartographic Engineer: AMANDA MEASUREMENT RESULTS: Intervals: Rate: 59 [place]: 146 QRSD: 82 QT: 442 QTc: 437 [place]: P: 59 [place]: 146 QRS: 44 T: 17 INTERPRETIVE STATEMENTS: Sinus bradycardia Otherwise normal ECG Compared to ECG 03/09/2019 13:22:47 Sinus rhythm no longer present Electronically Signed On 03-09-19 15:57:58 CDT by Vincent Colon
--- NOTE | 2019-03-09 15:58 | EDPHYS ---
Physician Documentation [facility] Name: Bianka Granado Age: 43 yrs Sex: Female : 1975 Arrival Date: 03/09/2019 Time: 13:28 Bed 7 Private MD: ED Physician Rajesh Mann HPI: 03/09 13:28 This 43 yrs old Female presents to ER via Unassigned with complaints of chest rn pain. 13:28 The patient or guardian reports chest pain that is located primarily in the substernal rn area. Onset: just prior to arrival. The pain radiates to the left arm. The chest pain is described as aching, dull. Duration: The patient or guardian reports a single episode, that is now resolved. Modifying factors: The symptoms are alleviated by NTG, X1. the symptoms are aggravated by nothing. Severity of pain: At its worst the pain was mild in the emergency department the pain has resolved. The patient has experienced a previous episode. Reports chest pain, central, reports pain to left arm and tingling, resolved after nitro x 1 and aspirin. Reports has had chest pain before last week, admitted and had negative stress, sees Dr. Eagle every 6 months, does not have recurrent chest pain. No cough/sob/abd pain/vomiting. Happened when laying down. Reports has felt fatigued and tired today.. Historical: - Allergies: 13:33 Cipro; hb - Home Meds: 13:33 Lexapro Oral [Active]; hb 13:53 Qsymia oral oral once daily for Weight Loss Management for Overweight Patient with BMI hb 27 to 29 and Weight-Related Comorbidity [Active]; - PMHx: 13:33 Anxiety; hb - PSHx: 13:33 Tubal ligation; gastric sleeve; Cholecystectomy; hb - Immunization history:: Adult Immunizations up to date. - Social history:: Smoking status: Patient uses tobacco products, smokes one-half pack cigarettes per day. - Family history:: not pertinent. - Ebola Screening: : No symptoms or risks identified at this time. - Hospitalizations: : No recent hospitalization is reported. ROS: 13:28 Constitutional: Negative for fever, chills, and weight loss, Eyes: Negative for injury, rn pain, redness, and discharge, Neck: Negative for injury, pain, and swelling, Cardiovascular: Negative for palpitations, and edema, Respiratory: Negative for shortness of breath, cough, wheezing, and pleuritic chest pain, Abdomen/GI: Negative for abdominal pain, nausea, vomiting, diarrhea, and constipation, MS/Extremity: Negative for injury and deformity, Skin: Negative for injury, rash, and discoloration, Neuro: Negative for headache, weakness, numbness, tingling, and seizure. Exam: 13:28 Constitutional: This is a well developed, well nourished patient who is awake, alert, rn and in no acute distress. Head/Face: Normocephalic, atraumatic. Neck: Trachea midline, no thyromegaly or masses palpated, and no cervical lymphadenopathy. Supple, full range of motion without nuchal rigidity, or vertebral point tenderness. No Meningismus. Cardiovascular: Regular rate and rhythm. No pulse deficits. Respiratory: Lungs have equal breath sounds bilaterally, clear to auscultation. No increased work of breathing, no retractions or nasal flaring. Abdomen/GI: soft, non-tender Skin: Warm, dry with normal turgor. Normal color with no rashes, no lesions, and no evidence of cellulitis. MS/ Extremity: Pulses equal, no cyanosis. Neurovascular intact. Full, normal range of motion. Equal circumference. Neuro: Awake and alert, GCS 15, oriented to person, place, time, and situation. Cranial nerves II-XII grossly intact. Motor strength 5/5 in all extremities. Sensory grossly intact. Cerebellar exam normal. 14:43 ECG was reviewed by the Attending Physician. rn Vital Signs: 13:33 BP 129 / 87; Pulse 69; Resp 16; Temp 97.9; Pulse Ox 100% on R/A; Weight 124.74 kg; hb Height 5 ft. 6 in. (167.64 cm); Pain 1/10; 14:27 BP 122 / 79; Pulse 73; Resp 18; Pulse Ox 98% on R/A; Pain 0/10; em1 15:52 BP 132 / 77; Pulse 70; Resp 17; Pulse Ox 99% on R/A; Pain 0/10; sg 16:04 BP 122 / 79; Pulse 66; Resp 16; Temp 98; Pulse Ox 99% on R/A; rv 13:33 Body Mass Index 44.39 (124.74 kg, 167.64 cm) hb MDM: 13:28 Patient medically screened. rn 14:29 Differential diagnosis: acute myocardial infarction, acute pericarditis, anxiety, rn costochondritis, esophagitis, gastritis, gastroesophageal reflux disease (GERD), pleurisy, pneumothorax. Data reviewed: vital signs, nurses notes, lab test result(s), EKG, radiologic studies. Counseling: I had a detailed discussion with the patient and/or guardian regarding: the historical points, exam findings, and any diagnostic results supporting the discharge/admit diagnosis, lab results, radiology results. Response to treatment: the patient's symptoms have resolved after treatment, the patient's condition has returned to base line, the patient is now symptom free. ED course: Pt with negative w/u, normal ecg, neg trop. Sees Dr. Eagle every 6 months and had neg stress test 1 year ago. Will observe and repeat trop and ecg. If remains chest pain free and repeat studies normal, will dc home with Dr. Eagle f/u. Reports has been taking mixture of phentermine/topamax recently. Recommend cessation of stimulants and f/u. . 15:32 ED course: Repeat ECG sinus bradycardia, no ischemic changes.. rn 15:56 ED course: Rpt trop neg, will dc home with Dr. Eagle f/u. Told patient.. rn 03/09 13:28 Order name: Basic Metabolic Panel; Complete Time: 14:23 rn 03/09 13:28 Order name: CBC with Diff; Complete Time: 14:09 rn 03/09 13:28 Order name: NT PRO-BNP; Complete Time: 14:23 rn 03/09 13:28 Order name: Troponin (emerg Dept Use Only); Complete Time: 14:23 rn 03/09 13:28 Order name: XRAY Chest (1 view); Complete Time: 15:24 rn 03/09 14:30 Order name: Troponin I: repeat at 1530; Complete Time: 15:56 03/09 13:28 Order name: EKG; Complete Time: 13:30 rn 03/09 13:28 Order name: Cardiac monitoring; Complete Time: 13:50 rn 03/09 13:28 Order name: EKG - Nurse/Tech; Complete Time: 13:50 rn 03/09 13:28 Order name: IV Saline Lock; Complete Time: 13:50 rn 03/09 13:28 Order name: Labs collected and sent; Complete Time: 13:50 rn 03/09 13:28 Order name: O2 Per Protocol; Complete Time: 14:11 rn 03/09 13:28 Order name: O2 Sat Monitoring; Complete Time: 14:11 rn 03/09 15:24 Order name: EKG; Complete Time: 15:24 rn 03/09 15:24 Order name: EKG - Nurse/Tech; Complete Time: 15:49 rn EC:43 Rate is 73 beats/min. Rhythm is regular. QRS [place] is Normal. [place] interval is normal. QRS rn interval is normal. QT interval is normal. No Q waves. T waves are Normal. No ST changes noted. Clinical impression: Normal ECG. Interpreted by me. Reviewed by me. Administered Medications: No medications were administered Disposition: 03/09/19 15:56 Discharged to Home. Impression: Chest pain, unspecified. - Condition is Stable. - Discharge Instructions: Nonspecific Chest Pain. - Medication Reconciliation Form, Thank You Letter, Antibiotic Education, Prescription Opioid Use form. - Follow up: Nathen Eagle MD; When: As needed; Reason: Recheck today's complaints, Re-evaluation by your physician. - Problem is new. - Symptoms have improved. Signatures: Dispatcher [employer] EDMS Rajesh Mann MD MD rn Baxter, Heather, RN RN hb Vicente, Ronaldo, RN RN rv Corrections: (The following items were deleted from the chart) 16:07 15:56 03/09/2019 15:56 Discharged to Home. Impression: Chest pain, unspecified. rv Condition is Stable. Forms are Medication Reconciliation Form, Thank You Letter, Antibiotic Education, Prescription Opioid Use. Follow up: Nathen Eagle; When: As needed; Reason: Recheck today's complaints, Re-evaluation by your physician. Problem is new. Symptoms have improved. rn
--- NOTE | 2019-03-09 15:58 | ER ---
Nurse's Notes [facility] Name: Bianka Granado Age: 43 yrs Sex: Female : 1975 Arrival Date: 03/09/2019 Time: 13:28 Bed 7 Private MD: Diagnosis: Chest pain, unspecified Presentation: 03/09 13:30 Presenting complaint: EMS states: Substernal chest pain that radiates to left arm. 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 Transition of care: patient was not received from another setting of care. Onset of symptoms was March 09, 2019. Risk Assessment: Do you want to hurt yourself or someone else? Patient reports no desire to harm self or others. Initial Sepsis Screen: Does the patient meet any 2 criteria? No. Patient's initial sepsis screen is negative. Does the patient have a suspected source of infection? No. Patient's initial sepsis screen is negative. Care prior to arrival: Medication(s) given: ASA, 324 mg Nitroglycerin, 0.4 mg SL x 1. 13:30 Method Of Arrival: EMS: [facility] hb 13:30 Acuity: CANDI 3 hb Historical: - Allergies: 13:33 Cipro; hb - Home Meds: 13:33 Lexapro Oral [Active]; hb 13:53 Qsymia oral oral once daily for Weight Loss Management for Overweight Patient with BMI hb 27 to 29 and Weight-Related Comorbidity [Active]; - PMHx: 13:33 Anxiety; hb - PSHx: 13:33 Tubal ligation; gastric sleeve; Cholecystectomy; hb - Immunization history:: Adult Immunizations up to date. - Social history:: Smoking status: Patient uses tobacco products, smokes one-half pack cigarettes per day. - Family history:: not pertinent. - Ebola Screening: : No symptoms or risks identified at this time. - Hospitalizations: : No recent hospitalization is reported. Screenin:34 Abuse screen: Denies threats or abuse. Denies injuries from another. Nutritional hb screening: No deficits noted. Tuberculosis screening: No symptoms or risk factors identified. Fall Risk None identified. Assessment: 13:35 General: Appears in no apparent distress. Behavior is calm, cooperative. Pain: Denies hb pain. Neuro: Level of Consciousness is awake, alert, obeys commands, Oriented to person, place, time, situation. Cardiovascular: Capillary refill < 3 seconds Patient's skin is warm and dry. Respiratory: Airway is patent Respiratory effort is even, unlabored, Respiratory pattern is regular, symmetrical, Breath sounds are clear bilaterally. GI: No signs and/or symptoms were reported involving the gastrointestinal system. : No signs and/or symptoms were reported regarding the genitourinary system. EENT: No signs and/or symptoms were reported regarding the EENT system. Derm: Skin is intact, is healthy with good turgor. Musculoskeletal: No signs and/or symptoms reported regarding the musculoskeletal system. 14:29 Reassessment: orders to repeat the troponin in 2 hours, pt stated understanding. sg 15:30 Reassessment: Patient appears in no apparent distress at this time. Patient and/or sg family updated on plan of care and expected duration. Pain level reassessed. Patient is alert, oriented x 3, equal unlabored respirations, skin warm/dry/pink. pt requesting warm blankets, more warm blankets given, pt is thankful Patient states feeling better. Vital Signs: 13:33 BP 129 / 87; Pulse 69; Resp 16; Temp 97.9; Pulse Ox 100% on R/A; Weight 124.74 kg; hb Height 5 ft. 6 in. (167.64 cm); Pain 1/10; 14:27 BP 122 / 79; Pulse 73; Resp 18; Pulse Ox 98% on R/A; Pain 0/10; em1 15:52 BP 132 / 77; Pulse 70; Resp 17; Pulse Ox 99% on R/A; Pain 0/10; sg 16:04 BP 122 / 79; Pulse 66; Resp 16; Temp 98; Pulse Ox 99% on R/A; rv 13:33 Body Mass Index 44.39 (124.74 kg, 167.64 cm) hb ED Course: 13:28 Patient arrived in ED. rn 13:28 Rajesh Mann MD is Attending Physician. rn 13:29 EKG done, by senior controls technician. reviewed by Rajesh Mann MD. sm3 13:30 Apple Walton, RN is Primary Nurse. hb 13:32 Triage completed. hb 13:33 Arm band placed on. hb 13:34 Patient has correct armband on for positive identification. Bed in low position. Call hb light in reach. Side rails up X 1. library monitor on. Pulse ox on. NIBP on. 14:01 XRAY Chest (1 view) In Process Unspecified. EDMS 14:55 Primary Nurse role handed off by Apple Walton, ABY 14:55 Placido Degroot, RN is Primary Nurse. sg 15:28 Repeat lab(s) drawn. by al, sent to lab. sg 15:49 EKG done, by senior controls technician. reviewed by Rajesh Mann MD Repeat EKG. at1 15:56 Nathen Eagle MD is Referral Physician. rn 16:04 No provider procedures requiring assistance completed. IV discontinued, intact, rv bleeding controlled, No redness/swelling at site. Pressure dressing applied. Administered Medications: No medications were administered Outcome: 15:56 Discharge ordered by MD. rn 16:04 Discharged to home ambulatory. rv 16:04 Condition: good 16:04 Discharge instructions given to patient, family, Instructed on discharge instructions, follow up and referral plans. Demonstrated understanding of instructions, follow-up care. 16:07 Patient left the ED. rv Signatures: Dispatcher [employer] EDAK Placido Degroot, RN RN Rajesh Palmer MD MD rn Martinez, Eric em1 Mckenna Núñez, diamond merchant EKG Tat1 Apple Walton, RN Brenda Guevara 3 Mynor Noriega RN RN rv
--- NOTE | 2019-03-09 15:59 | EKG ---
Test Date: 2019-03-09 Test Time: 13:22:47 Retail District Manager: MAX MEASUREMENT RESULTS: Intervals: Rate: 73 CA: 144 QRSD: 78 QT: 408 QTc: 449 [place]: P: 64 CA: 144 QRS: 44 T: 4 INTERPRETIVE STATEMENTS: Normal sinus rhythm Normal ECG Compared to ECG 12/26/2017 00:20:08 No significant changes Electronically Signed On 03-09-19 15:58:02 CDT by Vincent Colon
== END 2019-03-09 16:07 | disposition home or self-care (01) ==
LOC: ER 13:26
DX: R07.9 Chest pain, unspecified (principal); F17.210 Nicotine dependence, cigarettes, uncomplicated; Z88.1 Allergy status to other antibiotic agents
CPT/HCPCS: 36415; 71045; 80048; 83880; 84484; 85025; 93005; 99284

== ENCOUNTER 2019-10-29 21:48 | Emergency (ER) | payer OTHER ==
--- OUTSIDE RECORDS SUMMARY | 2019-10-29 21:50 | XMS REPORT ---
:1975 Author Organization [facility] Address [address] [place] [address] Dr. Tam [address] [place] [id number] Care Team Providers Name Role Phone Unavailable Unavailable Unavailable Problems This patient has no known problems. Allergies, Adverse Reactions, Alerts This patient has no known allergies or adverse reactions. Medications This patient has no known medications.
--- OUTSIDE RECORDS SUMMARY | 2019-10-29 21:50 | XMS REPORT | Summary of Care ---
:1975 Author Organization [facility] Address [address] [place] [id number] Care Team Providers Name Role Phone Nereida Brown Primary Care Provider Reason for Visit Reason Comments Results Encounter Details Date Type Department Care Team Description 10/29/2019 Telephone [facility] Family Medicine Elke Latham PA Results - [address] [id number] [place] [address] Allergies Active Allergy Reactions Severity Noted Date Comments Ciprofloxacin Other - See comments 11/03/2017 Difficulty arousing documented as of this encounter (statuses as of 10/29/2019) Medications Medication Sig Dispensed Refills Start Date End Date Status FLUoxetine 40 mg Take 40 mg by 0 Active capsule mouth. FLUoxetine 20 mg TAKE 1 CAPSULE 0 10/13/2019 Active capsule BY MOUTH 1 TIME EACH DAY IN ADDITION TO THE 40 MG CAPSULE FOR A TOTAL DOSE OF 60 MG. hydrOXYzine 25 mg TAKE 1 TABLET 0 09/06/2019 Active tablet BY MOUTH EVERY 8 HOURS NEEDED FOR ITCHING OR ANXIEITY benzonatate (TESSALON Take 1 capsule 30 capsule 0 10/27/2019 11/06/2019 Active PERLES) 100 mg by mouth 3 capsuleIndications: (three) times Cough daily for 10 days. amoxicillin-clavulanat Take 1 tablet 14 tablet 0 10/27/2019 11/03/2019 Active e (AUGMENTIN) 875-125 by mouth 2 mg per (two) times tabletIndications: daily for 7 Other acute days. nonsuppurative otitis media of right ear, recurrence not specified documented as of this encounter (statuses as of 10/29/2019) Active Problems No known active problemsdocumented as of this encounter (statuses as of 2019) Social History Tobacco Use Types Packs/Day Years Used Date Current Some Day Smoker Cigarettes 0.25 15 Smokeless Tobacco: Never Used Alcohol Use Drinks/Week oz/Week Comments Yes social Sex Assigned at Date Recorded Not on file Job Start Date Occupation Industry Not on file Not on file Not on file Travel History Travel Start Travel End No recent travel history available. documented as of this encounter Last Filed Vital Signs Not on filedocumented in this encounter Plan of Treatment Health Maintenance Due Date Last Done Comments PNEUMOCOCCAL 0-64 YEARS COMBINED SERIES (1 of - 12/21/1981 PPSV23) DTaP,Tdap,and Td Vaccines (1 - Tdap) 12/21/1986 PAP SMEAR 12/21/1996 Breast Cancer Screening (MAMMOGRAM) 11/10/2018 11/10/2017 INFLUENZA VACCINE (#1) 2019 documented as of this encounter Results Not on filedocumented in this encounter Insurance Payer Benefit Plan / Group Subscriber ID Effective Dates Phone Address Type HEIKE BURROUGHS II [id number] 2017-Present HMO/PPO/POS documented as of this encounter
--- OUTSIDE RECORDS SUMMARY | 2019-10-29 21:50 | XMS REPORT | Summary of Care ---
:1975 Author Organization [facility] - [facility] Address [address] [place] [id number] Care Team Providers Name Role Phone Nereida Brown Primary Care Provider Reason for Visit Reason Comments Cough dx flu A 09/29/2019 Fever tmax 100.5 this AM Headache Fatigue Encounter Details Date Type Department Care Team Description 10/27/2019 Urgent Care [facility] Anne-Marie Meade, SUPERVISOR PACKING ROOM [address] [place] [address] Acute URI (Primary Dx); [place] [address], Acute Care Clinic History of fever; [address] Cough; [place], [place] Other acute nonsuppurative otitis media of right ear, recurrence not specified; [id number] Elevated BP without diagnosis of hypertension [phone] Allergies Active Allergy Reactions Severity Noted Date Comments Ciprofloxacin Other - See comments 11/03/2017 Difficulty arousing documented as of this encounter (statuses as of 10/27/2019) Medications Medication Sig Dispensed Refills Start Date End Date Status FLUoxetine 40 mg Take 40 mg by 0 Active capsule mouth. FLUoxetine 20 mg TAKE 1 0 10/13/2019 Active capsule CAPSULE BY MOUTH 1 TIME EACH DAY IN ADDITION TO THE 40 MG CAPSULE FOR A TOTAL DOSE OF 60 MG. hydrOXYzine 25 mg TAKE 1 TABLET 0 09/06/2019 Active tablet BY MOUTH EVERY 8 HOURS NEEDED FOR ITCHING OR ANXIEITY benzonatate Take 1 30 capsule 0 10/27/2019 11/06/19 Active (TESSALON PERLES) capsule by 20 100 mg mouth 3 capsuleIndications: (three) times Cough daily for 10 days. amoxicillin-clavula Take 1 tablet 14 tablet 0 10/27/2019 11/03/19 Active devorah (AUGMENTIN) by mouth 2 20 875-125 mg per (two) times tabletIndications: daily for 7 Other acute days. nonsuppurative otitis media of right ear, recurrence not specified escitalopram Take 1 tablet 0 10/28/2017 10/27/19 Discontinued oxalate 20 mg by mouth 20 (Duplicate) tablet daily. documented as of this encounter (statuses as of 10/27/2019) Active Problems No known active problemsdocumented as [...] of this encounter Last Filed Vital Signs Vital Sign Reading Time Taken Comments Blood Pressure 157/98 10/27/2019 4:00 PM CDT Pulse 65 10/27/2019 3:55 PM CDT Temperature 36.5 C (97.7 F) 10/27/2019 3:55 PM CDT Respiratory Rate 18 10/27/2019 3:55 PM CDT Oxygen Saturation 100% 10/27/2019 3:55 PM CDT Inhaled Oxygen Concentration - - Weight 131.1 kg (289 lb) 10/27/2019 3:55 PM CDT Height 167.6 cm (5' 6") 10/27/2019 3:55 PM CDT Body Mass Index 46.65 10/27/2019 3:55 PM CDT documented in this encounter Patient Instructions Patient InstructionsElke Latham PA - 10/27/2019 4:00 PM CDTWatch blood pressure: check 2-3 times daily and log. Look for high numbers >=130/80. Log reading. Follow up with your PCP Low salt Low caffeine diet Low alcohol Avoid tobacco products. Avoid decongestants Heart Healthy Exercise: total of 150 minutes of cardio: walking,swimming, hiking , biking every week. Heart healthy diet: low fat/carb/sugar diet; increase lean meat-chicken, turkey , fish; increase vegetables/fruits ( still be careful because elevated sugar level) Er--> chest pain, dizziness, passing out, fluttering of heart, shortness of breath, worst SALDANA of life documented in this encounter Progress Notes Elke Latham PA - 10/27/2019 4:00 PM CDT Cc: Chief Complaint Patient presents with Cough dx flu A 09/29/2019 Fever tmax 100.5 this AM Headache Fatigue Bianka Granado is a 43 year old female. September 23 on cruise to [place]. Started feeling bad the night before she went. Tested positive forFlu A with her PCP (Dr. Stubbs). Symptoms resolved. Started feeling ill about 5 days ago. No known COVID-19 exposure. Suspected COVID-19 exposure? Possible resident in her apartment complex who was tested and waiting on results. Went to Dr. Stubbs via telemedicine visit 5 days ago and just finished zpack yesterday. URI Presenting symptoms: cough (dry cough), ear pain (R ear), fatigue, fever and sore throat Presenting symptoms: no congestion, no facial pain and no rhinorrhea Duration: 5 days Timing: Intermittent Progression: Unchanged Chronicity: New Worsened by: Nothing Ineffective treatments: helps but does not resolve: dayquil, nitequil, tylenol. Associated symptoms: headaches (attributes to R earache, not severe, not worst SALDANA of life, not sudden/not max onset.) Associated symptoms: no arthralgias, no myalgias, no neck pain, no sinus pain, no sneezing, no swollen glands and no wheezing Risk factors: recent illness Risk factors: not elderly, no chronic cardiac disease, no chronic kidney disease , no chronic respiratory disease, no diabetes mellitus, no immunosuppression, no recent travel and no sick contacts Allergies Bianka is allergic to ciprofloxacin. Medications Outpatient Medications Prior to Visit Medication Sig Dispense Refill FLUoxetine 20 mg capsule TAKE 1 CAPSULE BY MOUTH 1 TIME EACH DAY IN ADDITION TO THE 40 MG CAPSULE FOR A TOTAL DOSE OF 60 MG. FLUoxetine 40 mg capsule Take 40 mg by mouth. hydrOXYzine 25 mg tablet TAKE 1 TABLET BY MOUTH EVERY 8 HOURS NEEDED FOR ITCHING OR ANXIEITY escitalopram oxalate 20 mg tablet Take 1 tablet by mouth daily. No facility-administered medications prior to visit. Histories Past Medical History: Diagnosis Date Anxiety Depression Past Surgical History: Procedure Laterality Date CHOLECYSTECTOMY HERNIA REPAIR LAPAROSCOPIC GASTRIC SLEEVE (SHX) TUBAL LIGATION Social History Socioeconomic History Marital status: Spouse name: Not on file Number of children: Not on file Years of education: Not on file Highest education level: Not on file Occupational History Not on file Social Needs Financial resource strain: Not on file Food insecurity: Worry: Not on file Inability: Not on file Transportation needs: Medical: Not on file Non-medical: Not on file Tobacco Use Smoking status: Current Some Day Smoker Packs/day: 0.25 Years: 15.00 Pack years: 3.75 Types: Cigarettes Smokeless tobacco: Never Used Substance and Sexual Activity Alcohol use: Yes Comment: social Drug use: No Sexual activity: Not on file Lifestyle Physical activity: Days per week: Not on file Minutes per session: Not on file Stress: Not on file Relationships Social connections: Talks on phone: Not on file Gets together: Not on file Attends spiritism service: Not on file Active member of club or organization: Not on file Attends meetings of clubs or organizations: Not on file Relationship status: Not on file Intimate partner violence: Fear of current or ex partner: Not on file Emotionally abused: Not on file Physically abused: Not on file Forced sexual activity: Not on file Other Topics Concern Not on file Social History Narrative Lives at home with and son Family History Problem Relation Age of Onset Cancer Maternal Aunt Cancer Maternal Grandmother Cancer Other Review of Systems Constitutional: Positive for fatigue and fever. Negative for activity change, appetite change, chills and diaphoresis. HENT: Positive for ear pain (R ear) and sore throat. Negative for congestion, facial swelling, postnasal drip, rhinorrhea, sinus pressure, sinus pain, sneezing, trouble swallowing and voice change. Eyes: Negative for pain, discharge, redness and itching. Respiratory: Positive for cough (dry cough). Negative for chest tightness, shortness of breath and wheezing. Cardiovascular: Negative for chest pain, palpitations and leg swelling. Gastrointestinal: Negative for abdominal pain, constipation, diarrhea, nausea and vomiting. Genitourinary: Negative for bladder incontinence, dysuria, urgency and frequency. Musculoskeletal: Negative for arthralgias, myalgias, neck pain and neck stiffness. Skin: Negative for rash. Neurological: Positive for headaches (attributes to R earache, not severe, not worst SALDANA of life, notsudden/not max onset.). Negative for dizziness, tremors, seizures, syncope, facial asymmetry, speechdifficulty, weakness, light- headedness and numbness. Psychiatric/Behavioral: Negative for behavioral problems and confusion. Vital Signs BP (!) 157/98 | Pulse 65 | Temp 36.5 C (97.7 F) (Oral) | Resp 18 | Ht 5 ' 6" (1.676 m) | Wt 289 lb (131.1 kg) | LMP 10/13/2019 | SpO2 100% | BMI 46.65 kg/m Vitals: 10/27/19 1555 10/27/19 1600 BP: (!) 162/99 (!) 157/98 Pulse: 65 Resp: 18 Temp: 36.5 C (97.7 F) TempSrc: Oral SpO2: 100% Weight: 289 lb (131.1 kg) Height: 5' 6" (1.676 m) Physical Exam Constitutional: She is oriented to person, place, and time. She appears well- developed and well-nourished. No distress. HENT: Head: Normocephalic and atraumatic. Right Ear: Hearing, external ear and ear canal normal. No lacerations. No drainage, swelling or tenderness. No foreign bodies. No mastoid tenderness. Tympanic membrane is bulging. Tympanic membrane is not injected, not scarred, not perforated, not erythematous and not retracted. A middle ear effusion is present. No hemotympanum. Left Ear: Hearing, tympanic membrane, external ear and ear canal normal. Nose: Mucosal edema present. No rhinorrhea. Right sinus exhibits no maxillary sinus tenderness and no frontal sinus tenderness. Left sinus exhibits no maxillary sinus tenderness and no frontal sinus tenderness. Mouth/Throat: Uvula is midline, oropharynx is clear and moist and mucous membranes are normal. No oropharyngeal exudate, posterior oropharyngeal edema, posterior oropharyngeal erythema or tonsillar abscesses. Tonsils are 0 on the right. Tonsils are 0 on the left. No tonsillar exudate. Eyes: Pupils are equal, round, and reactive to light. Conjunctivae and EOM are normal. Neck: Normal range of motion and full passive range of motion without pain. Neck supple. No spinous process tenderness and no muscular tenderness present. Carotid bruit is not present. No neck rigidity. No edema, no erythema and normal range of motion present. Cardiovascular: Normal rate, regular rhythm and normal heart sounds. Pulmonary/Chest: Effort normal and breath sounds normal. Abdominal: Soft. Bowel sounds are normal. She exhibits no distension. There is no tenderness. There is no rebound and no guarding. Musculoskeletal: Normal range of motion. She exhibits no edema. Lymphadenopathy: She has no cervical adenopathy. Neurological: She is alert and oriented to person, place, and time. No cranial nerve deficit or sensory deficit. She exhibits normal muscle tone. Coordination normal. Able to raise eyebrows, frown, smile, poof out cheeks, bite down and clench jaw , stick out tongue and say AH, move tongue side to side, sensory of face to palpation intact when eyes closed, hearing to rubbing of fingers with eyes closed intact, interpretation of number of fingers being held intact DANO fingers and hands intact, finger to nose Strength 5/5 b/l UE and LE Sensory intact and equal b/l UE and LE Negative rhomberg and pronator drift test Gait- intact Skin: Skin is warm and dry. No rash noted. She is not diaphoretic. Psychiatric: She has a normal mood and affect. Her behavior is normal. Nursing note and vitals reviewed. Assessment/Plan Acute URI (primary encounter diagnosis) History of fever Cough Plan: CORONAVIRUS COVID-19 TESTING, CORONAVIRUS COVID-19 TESTING, benzonatate (TESSALON PERLES) 100 mg capsule Afebrile, well appearing, non-toxic, NAD. HR < 100, lungs CTAB, O2 sat 100%. COVID-19 testing ordered. Educated on the following at home care: -Increase water intake -Take over the counter vitamin C -Take Tylenol as needed, avoid nsaids -Take tessalon as needed for cough. Stop Dayquil/nitequil -Take plain guaifenesin with full glass of water as needed -Recommend using her flonase at home 1-2 sprays in each nostril daily -REST -Wash hands often -Cover mouth when coughing -Wear mask with in the same room/car as others -Gargle with warm salt water as needed -Drink warm liquids as needed. -Throat lozenges as needed -Avoid smoking -Quarantine until your COVID results are back -Stay in your own bedroom and use a separate bathroom -Keep at least 6 feet from you and others -Avoid sharing personal household items, dishes, glasses, cups, towels -Clean high traffic/touch areas daily. These include but not limited to: doorknobs, refrigerator/cabinet handles, phones, keyboards, tablets, light switches. -Monitor your symptoms. Take your temperature 2 times daily. -Follow-up with PCP as needed, if no improvement. -Monitor your symptoms. Go to the ED if worsening symptoms: chest pain, difficulty breathing, coughing up blood, weakness, dizziness, passing out, AMS. Other acute nonsuppurative otitis media of right ear, recurrence not specified Plan: amoxicillin-clavulanate (AUGMENTIN) 875-125 mg per tablet Patient w/ R ear pain and evidence of AOM on exam. Did recently finish zpack but still with signs ofAOM on exam. Will start on Augmentin. Patient reports taking previously and tolerating well. Take full course as directed with food and probiotic. Follow-up with ENT if no improvement. Take Tylenol as needed. Flonase: 1-2 sprays in each nostril daily. Avoid swimming/water/elevation changes. ER--> worsening condition, severe pain Elevated BP without diagnosis of hypertension Plan: Bp elevated today. No cp, palpitations, sob, dizziness, syncope. Denies pmh of HTN. Admits to takingDayquil. Suspect decongestant use likely contributing. Encouraged to stop. Monitor BP at home. Check2-3 times daily. Follow-up with PCP in 1 week. Low salt Low caffeine diet Low alcohol Avoid tobacco products. Avoid decongestants Heart Healthy Exercise: total of 150 minutes of cardio: walking,swimming, hiking , biking every week. Heart healthy diet: low fat/carb/sugar diet; increase lean meat-chicken, turkey , fish; increase vegetables/fruits ( still be careful because elevated sugar level) Er--> chest pain, dizziness, passing out, fluttering of heart, shortness of breath. Pt ed/precautions given in detail regarding conditions/medicaitons. Er precautions given. Pt reportsunderstanding and agrees. rtc if s/s worsen or do not improve; Plan of care, desired health behaviors, goals, Ddx, & any prescribed or OTC medications discussed with patient. Education resources & self management tools provided and reviewed with AVS. Patient/guardian/family verbalized understanding & agrees to plan of care. Barriers to care: NONE Ability to manage care: Good This visit did not involve counseling and coordination that comprised more than 50% of the visit time.Electronically signed by Elke Latham PA at 2019 9:07 PM Mary Ellen Membreno RN - 10/27/2019 4:00 PM CDT Bianka Granado is a 43 year old female Chief Complaint Patient presents with Cough dx flu A 09/29/2019 Fever tmax 100.5 this AM Headache Fatigue Vitals: 10/27/19 1555 BP: (!) 162/99 Pulse: 65 Resp: 18 Temp: 36.5 C (97.7 F) TempSrc: Oral SpO2: 100% Weight: 289 lb (131.1 kg) Height: 5' 6" (1.676 m) [facility]/pharmacy #[id number] - [place], [place] - [address] AT [facility] Patient AAOx4 and in no acute distress. All Vitals taken, allergies and all medications reviewed, fall risk assessed. Pain level 10. documented in this encounter Plan of Treatment Name Type Priority Associated Diagnoses Date/Time CORONAVIRUS COVID-19 LAB Routine History of fever 10/27/2019 3:57 PM TESTING Cough CDT Name Type Priority Associated Diagnoses Order Schedule CORONAVIRUS COVID-19 LAB Routine History of fever Expected: 10/27/2019, TESTING Cough Expires: 10/26/2020 Health Maintenance Due Date Last Done Comments PNEUMOCOCCAL 0-64 YEARS COMBINED SERIES (1 of - 12/21/1981 PPSV23) DTaP,Tdap,and Td Vaccines (1 - Tdap) 12/21/1986 PAP SMEAR 12/21/1996 Breast Cancer Screening (MAMMOGRAM) 11/10/2018 11/10/2017 INFLUENZA VACCINE (#1) 2019 documented as of this encounter Results Not on filedocumented in this encounter Visit Diagnoses Diagnosis Acute URI - Primary Acute upper respiratory infections of unspecified site History of fever Personal history of other specified diseases Cough Other acute nonsuppurative otitis media of right ear, recurrence not specified Elevated BP without diagnosis of hypertension documented in this encounter ([place]) [place] [address] documented as of this encounter
--- NOTE | 2019-10-29 22:03 | ER ---
Nurse's Notes [facility] Name: Bianka Granado Age: 43 yrs Sex: Female : 1975 Arrival Date: 10/29/2019 Time: 21:50 Bed Waiting Private MD: out of town, doctor Diagnosis: Presentation: 10/28 21:57 Chief complaint: Patient states: she was seen at [facility] a few weeks ago and dx bb with Flu A at that time her blood pressure was a little high and they told her to go to the ED if the diastolic was over 100 so prasanth she had a diastolic of 112 and was concerned. Coronavirus screen: Patient denies fever greater than 100.4F, cough, shortness of breath, or difficulty breathing. Proceed with normal triage process. Ebola Screen: No symptoms or risks identified at this time. Initial Sepsis Screen: Does the patient meet any 2 criteria? No. Patient's initial sepsis screen is negative. Does the patient have a suspected source of infection? No. Patient's initial sepsis screen is negative. Risk Assessment: Do you want to hurt yourself or someone else? Patient reports no desire to harm self or others. Onset of symptoms was October 29, 2019. 21:57 Method Of Arrival: Ambulatory bb 21:57 Acuity: CANDI 5 bb 21:59 Note after blood pressure checked pt states she is going home does not really want to bb be here and will follow up with PCP to be evaluated for high blood pressure. Vital Signs: 21:57 BP 135 / 85; Pulse 71; Resp 16 S; Temp 98.5(O); Pulse Ox 99% on R/A; bb ED Course: 21:50 Patient arrived in ED. mr 21:51 out of town, doctor is Private Physician. mr 21:59 Triage completed. bb Administered Medications: No medications were administered Outcome: 22:00 Patient left the ED. bb Signatures: Milena Aldridge Brenda, RN RN bb
[2019-10-29 22:32] VITALS: BP 135/85; TEMP 98.5; O2SAT 99
== END 2019-10-29 22:00 | disposition left against medical advice (07) ==
LOC: ER 21:48
DX: Z53.21 Procedure and treatment not carried out due to patient leaving prior to being seen by health care provider (principal)
CPT/HCPCS: 99281